=== PATIENT | male | born 1975 | race Caucasian/White ===

== ENCOUNTER → 2016-06-02 | Outpatient (CLI) | payer BC ==
[2016-06-02 12:23] VITALS: BP 113/73
[2016-06-02 14:00] VITALS: BP 119/71
[2016-06-02 15:13] VITALS: BP 110/62
[2016-06-02 15:20] VITALS: BP 116/62
== END ==
LOC: AMSURD 11:57
DX: R19.7 Diarrhea, unspecified (principal); R50.9 Fever, unspecified; E86.0 Dehydration
CPT/HCPCS: J7030

== ENCOUNTER → 2016-06-04 | Outpatient (CLI) | payer BC | LOC: LAB 08:59 | DX: R19.7 Diarrhea, unspecified (principal); M54.9 Dorsalgia, unspecified; R10.30 Lower abdominal pain, unspecified; R10.31 Right lower quadrant pain; A08.4 Viral intestinal infection, unspecified; R50.9 Fever, unspecified ==

== ENCOUNTER → 2016-06-13 | Outpatient (CLI) | payer BC | LOC: LAB 08:44 | DX: R19.7 Diarrhea, unspecified (principal); R50.9 Fever, unspecified; R10.9 Unspecified abdominal pain ==

== ENCOUNTER 2016-07-10 20:00 | Emergency (ER) | payer BC ==
[2016-07-10 21:28] VITALS: BP 128/82
== END 2016-07-10 21:28 | disposition home or self-care (01) ==
LOC: ED 20:00
DX: S83.412A Sprain of medial collateral ligament of left knee, initial encounter (principal); X58.XXXA Exposure to other specified factors, initial encounter; Y93.64 Activity, baseball; Y92.320 Baseball field as the place of occurrence of the external cause

== ENCOUNTER → 2017-01-13 | Outpatient (CLI) | payer BC ==
[~2017-01-13] VITALS: Ht 182.9 cm; Wt 122.7 kg
[2017-01-13 10:55] VITALS: BP 143/98
[2017-01-13 11:19] LABS: D-DIMER 0.12 mg/L FEU (0.15-0.50)
== END ==
LOC: AMSURD 10:34
PROVIDERS: Nurse Practitioner Family
DX: R03.0 Elevated blood-pressure reading, without diagnosis of hypertension (principal)

== ENCOUNTER → 2017-05-20 | Outpatient (CLI) | payer BC ==
[2017-01-13 10:55] VITALS: BP 143/98
== END ==
LOC: AMSURD 15:01
DX: I49.3 Ventricular premature depolarization (principal); R00.2 Palpitations

== ENCOUNTER → 2021-07-11 | Day surgery (SDC) | payer BC | END | disposition home or self-care (01) | LOC: MSO 07:21 | DX: K63.89 Other specified diseases of intestine (principal); R19.7 Diarrhea, unspecified; K59.00 Constipation, unspecified; R10.84 Generalized abdominal pain; R14.0 Abdominal distension (gaseous); Z87.891 Personal history of nicotine dependence | CPT/HCPCS: 00811; J2704; J7120 ==